=== PATIENT | female | born 2000 | race Caucasian/White ===

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

== ENCOUNTER 2025-01-20 16:19 | Emergency (ER) | payer BC, SELFPAY ==
[2025-01-20 16:22] VITALS: BP 114/72; PULSE 60; RESP 14; TEMP 36.9; O2SAT 97; BMI 22.6
--- NOTE | 2025-01-20 16:39 | US_ITS ---
PROCEDURE INFORMATION: Exam: US , Transvaginal Exam date and time: 01/20/2025 5:10 PM Age: 24 years old Clinical indication: complicated by abdominal or pelvic pain; Lower; First trimester (<14 weeks 0 days); Gestational age or lmp: 7w1d; ; Additional info: 8 wks preg TECHNIQUE: Imaging protocol: Real-time transvaginal obstetrical ultrasound of the maternal pelvis with image documentation. Transvaginal imaging was used for better evaluation of the fetus, adnexa, and/or cervix. COMPARISON: No relevant prior studies available. FINDINGS: Gestation: Yolk sac measures 0.54 cm. heart rate: heart rate 138 bpm. BIOMETRY: [place] rump length (CRL): [place]-rump length measures 10.01 mm. MATERNAL: Right ovary/adnexa: Right ovary measures 4 x 1.8 x 2.8 cm. There is normal vascular flow. Left ovary/adnexa: Left ovary measures 4 x 2 x 2.4 cm. There is normal vascular flow. IMPRESSION: Single live intrauterine of estimated gestational age 7 weeks 1 day.
--- NOTE | 2025-01-20 16:41 | HMH.EDGENADL ---
Discharge Plan Disposition Patient Disposition: Home, Self-Care Condition: Good Prescriptions Prescriptions: New diphenhydramine HCl [Unisom SleepGels] 50 mg capsule 50 mg PO HS 10 Days Qty: 10 0RF promethazine 12.5 mg tablet 12.5 mg PO TID 3 Days Qty: 9 0RF pyridoxine (vitamin B6) [Vitamin B-6] 25 mg tablet 25 mg PO BID Qty: 60 0RF Referrals Follow up/Referrals: Martín Ng MD [Primary Care Provider] - See instructions Activity Restrictions/Add. Instructions Additional Instructions/Restrictions: Monitor temperature. Seek treatment if fever develops. Follow-up immediately if new or worse symptoms worsen or no noticeable improvement over 48 hours. Increase fluids such as water, Gatorade, Powerade, juice or Pedialyte with limited formula/dietary in children No food is okay as long as you are drinking. Once ready to eat start bland such as bananas, rice, applesauce, toast. Follow-up immediately for new or worsening symptoms or no noticeable improvement over the next 48 hours. Clinical Impressions Clinical Impression: Hyperemesis Instructions Patient Instructions: DI for Acute Abdominal Pain Print Language Print Language: Slovak Discharge ED Provider: David Dunne General Adult HPI <Ayanna Martinez ([facility]), HEALTH AND FITNESS INSTRUCTOR - Last Filed: 01/20/25 19:25> General Chief complaint: Abdominal Pain Stated complaint: 5 wks preg, vomit,diarrhea abd pain Time Seen by Provider: 01/20/25 16:39 Mode of Arrival: Wheelchair Source of Information: Significant Other Description of Symptoms (Recalled from ER Triage Doc. by RN): Patient presents to triage via a wheelchair with her significant other. States she is having abdominal. Endorses N/V. States she has been doing so for, A few days. States she is two months . States she saw her OBGYN, but doesn't remember the date, and states she told them about the symptoms. States they attributed the symptoms to her . Her significant other states, She was sick for two days, better yesterday, and then sick again today. Denies fevers. Endorses diarrhea. G3, P1, A1 History of Present Illness HPI narrative: 24-year-old female presents for complaints of generalized abdominal pain, nausea and vomiting. Patient states she is 8 weeks . patient states she has had the symptoms since she found out she was but over the last few days the symptoms have increased. Patient states she did tell her LEVEL VIAL INSPECTOR of her symptoms and per patient was told it was because she was . Patient states she felt better yesterday but this morning she is unable to keep anything down. Related Data Previous Rx's ?Medication ?Instructions ?Recorded diphenhydramine HCl 50 mg capsule 50 mg PO HS 10 days #10 caps 01/20/25 (Unisom SleepGels) promethazine 12.5 mg tablet 12.5 mg PO TID 3 days #9 tabs 01/20/25 pyridoxine (vitamin B6) 25 mg 25 mg PO BID #60 tabs 01/20/25 tablet (Vitamin B-6) Allergies Allergy/AdvReac Type Severity Reaction Status Date / Time No Known Allergies Allergy Verified 04/28/20 13:31 PFS <Ayanna Martinez ([facility]), HEALTH AND FITNESS INSTRUCTOR - Last Filed: 01/20/25 19:25> PFS Disclaimer: The information contained in this section may have been updated after the patient was seen, as this information can be updated by other users. Social History (Updated 01/20/25 @ 19:25 by Ayanna Martinez ([facility]), HEALTH AND FITNESS INSTRUCTOR) Smoking Status: Never smoker alcohol intake: never current occupational status: other Travel in the last 8 weeks: None Have you lived/traveled outside [place] in past 30 days?: No Contact w/someone who lives/traveled outside US past 30 days?: No Exposure to someone with infectious disease in past 14 days?: No Do you have a fever (greater than 100.4 F or 38 C)?: No Have you tested positive for COVID-19: No Exposed to someone with COVID-19 in past 14 days?: No Do you have a sore throat?: No Do you have a cough?: No Do you have any weakness?: Yes Do you have any diarrhea?: Yes Are you experiencing any unusual bleeding?: No Do you have any muscle aches/pain?: No Do you have any abdominal pain?: Yes Are you experiencing loss of taste or smell?: No <Ayanna Martinez ([facility]), HEALTH AND FITNESS INSTRUCTOR - Last Filed: 01/20/25 19:25> ROS Obtained: Yes Systems reviewed as appropriate & no additional complaints except as documented Constitutional Constitutional: Reports system reviewed and no additional complaints, except as documented and Reports as per HPI Gastrointestinal Gastrointestingal: Reports system reviewed and no additional complaints, except as documented, as per HPI, abdominal pain, nausea and vomiting Physical Exam <Ayanna Martinez ([facility]), HEALTH AND FITNESS INSTRUCTOR - Last Filed: 01/20/25 19:25> General General appearance: alert and in no apparent distress Head Head exam: atraumatic Eye Eye exam: Present normal appearance ENT ENT exam: Present normal exam Respiratory Respiratory exam: Present normal lung sounds bilaterally Cardiovascular Cardiovascular exam: Present regular rate and normal rhythm Abdominal Exam Abdominal exam: Present soft, tenderness and normal bowel sounds Neurological Exam Neurological exam: Present alert and oriented X3 Skin Skin exam: Present warm and intact Medical Decision Making <Ayanna Martinez ([facility]), HEALTH AND FITNESS INSTRUCTOR - Last Filed: 01/20/25 19:25> Medical Records Medical records reviewed: Yes I reviewed the patient's medical records. Screening: Per USPSTF and CDC recommendations, given the prevalence of disease in our region, it is our hospital?s policy to screen for HIV and viral Hepatitis for all patients aged 18 and over and those with ongoing risk factors. Samuel Inquiry Pt receiving controlled substance: No Vital Signs: 01/20/25 16:22 01/20/25 17:01 01/20/25 18:00 Temperature 98.5 F Temperature Source Oral Pulse Rate 55 L 85 Pulse Rate [Radial] 60 Respiratory Rate 14 Blood Pressure 118/64 136/109 H Blood Pressure [R Arm] 114/72 Blood Pressure Mean [R Arm] 86 Blood Pressure Source [R Arm] Automatic Cuff 02 Sat by Pulse Oximetry 97 100 96 Oxygen Delivery Method Room Air Room Air 01/20/25 18:30 01/20/25 19:57 Temperature 97.9 F Temperature Source Oral Pulse Rate 72 72 Pulse Rate [Radial] Respiratory Rate 14 Blood Pressure 132/64 128/72 Blood Pressure [R Arm] Blood Pressure Mean [R Arm] Blood Pressure Source [R Arm] 02 Sat by Pulse Oximetry 99 Oxygen Delivery Method Room Air Room Air Lab Data Lab results reviewed: Yes I reviewed the patient's lab results. Lab Results 01/20/25 16:58: WBC 19.6 H, RBC 4.42, Hgb 13.7, Hct 39.8, MCV 90.0, MCH 31.0, MCHC 34.4, RDW 12.0, Plt Count 322, MPV 9.8, Neut % (Auto) 92.6 H, Lymph % (Auto) 3.5 L, [place] % (Auto) 2.9, Eos % (Auto) 0.1, Baso % (Auto) 0.3, Neut # (Auto) 18.2 H, Lymph # (Auto) 0.7, [place] # (Auto) 0.6, Eos # (Auto) 0.0, Baso # (Auto) 0.1, Total Counted 100, Neutrophils % (Manual) 92 H, Lymphocytes % (Manual) 3 L, Monocytes % (Manual) 5, Platelet Estimate Normal, RBC Morphology Normal, Sodium 137, Potassium 3.2 L, Chloride 101, Carbon Dioxide 29, Anion Gap 10.2, BUN 16, Creatinine 0.70, Estimated Creat Clear 107, Estimated GFR 104, Est GFR ( Amer) 125, Glucose 127 H, Calcium 9.1, Total Bilirubin 0.2, AST 32, ALT 21, Alkaline Phosphatase 69, Total Protein 7.5, Albumin 4.7, Globulin 2.8, Albumin/Globulin Ratio 1.7, Lipase 35, HCG, Quant [id number] H 01/20/25 17:40: SARS-CoV-2 (PCR) Not detected, Influenza A Untype (PCR) Not detected, Influenza Type B (PCR) Not detected 01/20/25 18:40: Urine Color Yellow, Urine Appearance Slightly cloudy, Urine pH 8.0, Ur Specific [place] 1.020, Urine Protein Negative, Urine Glucose (UA) Negative, Urine Ketones 2+, Urine Blood Negative, Urine Nitrate Negative, Urine Bilirubin Negative, Urine Urobilinogen 0.2, Ur Leukocyte Esterase Negative 01/20/25 16:58 01/20/25 16:58 Orders (Tests/Meds): ED MEDICATIONS Discontinued Medications Generic Name Dose Route Start Last Admin Trade Name Freq PRN Reason Stop Dose Admin Sodium Chloride 1,000 mls @ 999 mls/hr 01/20/25 16:39 01/20/25 16:51 Sod Chlor 0.9% 1000ml Bag IV 01/20/25 17:39 999 mls/hr .Q1H1M ONE Administration Ondansetron HCl 4 mg 01/20/25 16:39 01/20/25 16:51 Ondansetron 4mg/2ml Vial IV 01/20/25 16:40 4 mg ONCE ONE Administration Potassium Chloride 20 meq 01/20/25 17:36 01/20/25 18:12 Potassium Chloride 20meq Tab PO 01/20/25 17:37 20 meq ONCE ONE Administration Promethazine HCl 12.5 mg 01/20/25 17:52 01/20/25 17:59 Promethazine Hcl 25mg/Ml 1ml Vial IV 01/20/25 17:53 12.5 mg ONCE ONE Administration Sodium Chloride 25 ml 01/20/25 17:52 01/20/25 17:59 Sodium Chloride 0.9% 25ml Bag IV 01/20/25 17:53 25 ml ONCE ONE Administration ORDERS Category Date Time Status Beta HCG, Quant [HCG,Quantitative] Stat Lab 01/20/25 16:58 Completed CBC w/Auto Diff [Complete Blood Count Auto Diff] Stat Lab 01/20/25 16:58 Completed CMP [Comprehensive Metabolic Panel] Stat Lab 01/20/25 16:58 Completed Lipase Stat Lab 01/20/25 16:58 Completed Rapid PCR Covid and Flu A/B Stat Lab 01/20/25 17:40 Completed Urinalysis-Acute [Urinalysis and Microscopic] Stat Lab 01/20/25 18:40 Results US OB transvaginal Stat Ultrasound 01/20/25 16:39 Completed Medical Decision Narrative: In summary patient is a 24-year-old female who presents to the emergency department for evaluation of abdominal pain, nausea and vomiting. Patient is upon arrival, patient is hemodynamically stable and afebrile. Generalized tenderness in abdomen. Differential diagnosis includes gastritis, influenza, UTI, hyperemesis from . Initial workup will be conducted with labs, ultrasound shows a 7-week fetus in the uterus. Initial inventions include 1000 mL of normal saline, 20 mg of p.o. potassium, 12.5 of IV Phenergan. Initial workup reviewed by in labs show potassium of 3.2 given 20 mg of p.o. potassium, urinalysis was negative, and was given a p.o. challenge and was able to keep liquids down and patient states she feels better. Upon repeat evaluation patient states she is still slightly nauseous but much improved. Given this patient is appropriate for discharge at this time will discharge home with prescription for vitamin B6 Unasyn and Phenergan and close follow-up with LEVEL VIAL INSPECTOR. Encourage p.o. intake <David Dunne MD - Last Filed: 01/20/25 20:05> Vital Signs: 01/20/25 16:22 01/20/25 17:01 01/20/25 18:00 Temperature 98.5 F Temperature Source Oral Pulse Rate 55 L 85 Pulse Rate [Radial] 60 Respiratory Rate 14 Blood Pressure 118/64 136/109 H Blood Pressure [R Arm] 114/72 Blood Pressure Mean [R Arm] 86 Blood Pressure Source [R Arm] Automatic Cuff 02 Sat by Pulse Oximetry 97 100 96 Oxygen Delivery Method Room Air Room Air 01/20/25 18:30 01/20/25 19:57 Temperature 97.9 F Temperature Source Oral Pulse Rate 72 72 Pulse Rate [Radial] Respiratory Rate 14 Blood Pressure 132/64 128/72 Blood Pressure [R Arm] Blood Pressure Mean [R Arm] Blood Pressure Source [R Arm] 02 Sat by Pulse Oximetry 99 Oxygen Delivery Method Room Air Room Air Lab Data Lab Results 01/20/25 16:58: WBC 19.6 H, RBC 4.42, Hgb 13.7, Hct 39.8, MCV 90.0, MCH 31.0, MCHC 34.4, RDW 12.0, Plt Count 322, MPV 9.8, Neut % (Auto) 92.6 H, Lymph % (Auto) 3.5 L, [place] % (Auto) 2.9, Eos % (Auto) 0.1, Baso % (Auto) 0.3, Neut # (Auto) 18.2 H, Lymph # (Auto) 0.7, [place] # (Auto) 0.6, Eos # (Auto) 0.0, Baso # (Auto) 0.1, Total Counted 100, Neutrophils % (Manual) 92 H, Lymphocytes % (Manual) 3 L, Monocytes % (Manual) 5, Platelet Estimate Normal, RBC Morphology Normal, Sodium 137, Potassium 3.2 L, Chloride 101, Carbon Dioxide 29, Anion Gap 10.2, BUN 16, Creatinine 0.70, Estimated Creat Clear 107, Estimated GFR 104, Est GFR ( Amer) 125, Glucose 127 H, Calcium 9.1, Total Bilirubin 0.2, AST 32, ALT 21, Alkaline Phosphatase 69, Total Protein 7.5, Albumin 4.7, Globulin 2.8, Albumin/Globulin Ratio 1.7, Lipase 35, HCG, Quant [id number] H 01/20/25 17:40: SARS-CoV-2 (PCR) Not detected, Influenza A Untype (PCR) Not detected, Influenza Type B (PCR) Not detected 01/20/25 18:40: Urine Color Yellow, Urine Appearance Slightly cloudy, Urine pH 8.0, Ur Specific [place] 1.020, Urine Protein Negative, Urine Glucose (UA) Negative, Urine Ketones 2+, Urine Blood Negative, Urine Nitrate Negative, Urine Bilirubin Negative, Urine Urobilinogen 0.2, Ur Leukocyte Esterase Negative Orders (Tests/Meds): ED MEDICATIONS Discontinued Medications Generic Name Dose Route Start Last Admin Trade Name Freq PRN Reason Stop Dose Admin Sodium Chloride 1,000 mls @ 999 mls/hr 01/20/25 16:39 01/20/25 16:51 Sod Chlor 0.9% 1000ml Bag IV 01/20/25 17:39 999 mls/hr .Q1H1M ONE Administration Ondansetron HCl 4 mg 01/20/25 16:39 01/20/25 16:51 Ondansetron 4mg/2ml Vial IV 01/20/25 16:40 4 mg ONCE ONE Administration Potassium Chloride 20 meq 01/20/25 17:36 01/20/25 18:12 Potassium Chloride 20meq Tab PO 01/20/25 17:37 20 meq ONCE ONE Administration Promethazine HCl 12.5 mg 01/20/25 17:52 01/20/25 17:59 Promethazine Hcl 25mg/Ml 1ml Vial IV 01/20/25 17:53 12.5 mg ONCE ONE Administration Sodium Chloride 25 ml 01/20/25 17:52 01/20/25 17:59 Sodium Chloride 0.9% 25ml Bag IV 01/20/25 17:53 25 ml ONCE ONE Administration ORDERS Category Date Time Status Beta HCG, Quant [HCG,Quantitative] Stat Lab 01/20/25 16:58 Completed CBC w/Auto Diff [Complete Blood Count Auto Diff] Stat Lab 01/20/25 16:58 Completed CMP [Comprehensive Metabolic Panel] Stat Lab 01/20/25 16:58 Completed Lipase Stat Lab 01/20/25 16:58 Completed Rapid PCR Covid and Flu A/B Stat Lab 01/20/25 17:40 Completed Urinalysis-Acute [Urinalysis and Microscopic] Stat Lab 01/20/25 18:40 Results US OB transvaginal Stat Ultrasound 01/20/25 16:39 Completed Medical Decision Narrative: In summary patient is a 24-year-old female who presents to the emergency department for evaluation of abdominal pain, nausea and vomiting. Patient is upon arrival, patient is hemodynamically stable and afebrile. Generalized tenderness in abdomen. Differential diagnosis includes gastritis, influenza, UTI, hyperemesis from . Initial workup will be conducted with labs, ultrasound shows a 7-week fetus in the uterus. Initial inventions include 1000 mL of normal saline, 20 mg of p.o. potassium, 12.5 of IV Phenergan. Initial workup reviewed by me labs show potassium of 3.2 given 20 mg of p.o. potassium, urinalysis was negative, and was given a p.o. challenge and was able to keep liquids down and patient states she feels better. Upon repeat evaluation patient states she is still slightly nauseous but much improved. Given this patient is appropriate for discharge at this time will discharge home with prescription for vitamin B6 Unasyn and Phenergan and close follow-up with LEVEL VIAL INSPECTOR. Encourage p.o. intake KAJAL attestation I was consulted by the KAJAL, and we discussed the complexity of problems being addressed. I approved the treatment and management plan for this patient's care in the emergency department, thus performing a substantial portion of the medical decision making. 24-year-old female, G3, P2 presenting with diffuse abdominal pain, nausea, vomiting and positive home test. Differential diagnosis included ectopic and transvaginal ultrasound performed, independently interpreted by me, revealing intrauterine with a normal heart rate, estimated at 7 weeks and 1 day by [place]-rump length. After treatment with antiemetics, the patient was able to tolerate oral intake and had improvement in symptoms. Was also a daily marijuana smoker and counseled to discontinue this. Discharged with follow-up with LEVEL VIAL INSPECTOR. David Dunne MD Critical Care <Ayanna Martinez ([facility]), HEALTH AND FITNESS INSTRUCTOR - Last Filed: 01/20/25 19:25> Critical Care Time Critical Care Time: No
--- NOTE | 2025-01-20 16:41 | PC.NURSE ---
RADIOLOGY NOTIFIED OF US
[2025-01-20] MEDS: ONDANSETRON 4MG/2ML VIAL 4 MG IV (16:51)
[2025-01-20] MEDS: 0.9 % SODIUM CHLORIDE 1000ML 1,000 ML 999 ML IV (16:51)
[2025-01-20 17:01] VITALS: BP 118/64; PULSE 55; O2SAT 100
--- NOTE | 2025-01-20 17:03 | PC.NURSE ---
1645hrs IV established 18ga R hand. 1650hrs collected lab work and sent to lab. 1651hrs Administered 1L of NS at tko rate. 1653hrs administered 4mg of Zofran IV. 1700hrs sent blood work that I could get collected to the lab.
[2025-01-20 17:12] LABS: Basophils # 0.1 K/mm3 (0-0.2); Basophils % 0.3 % (0.1-2.0); Eosinophils % 0.1 % (0.1-12.0); Hematocrit 39.8 % (37.0-47.0); Hemoglobin 13.7 g/dL (12.2-16.2); Lymphocytes # 0.7 K/mm3 (0.7-4.5); Lymphocytes % 3.5 % (10-50); Mean Corpuscular HGB Conc 34.4 g/dL (31.8-35.4); Mean Platelet Volume 9.8 fl (7.4-10.4); Monocytes # 0.6 K/mm3 (0.1-1.0); Monocytes % 2.9 % (1.7-9.3); Neutrophils # 18.2 K/mm3 (1.8-7.8); Neutrophils % 92.6 % (37.0-80.0); Platelet Count 322 K/mm3 (142-424); Red Blood Count 4.42 M/mm3 (4.20-5.40); White Blood Count 19.6 K/mm3 (4.8-10.8)
[2025-01-20 17:15] LABS: MANUAL DIFFERENTIAL MANUAL DIFFERENTIAL (MANUAL DIFF)
--- NOTE | 2025-01-20 17:17 | PC.NURSE ---
pt to u/s via wheelchair
[2025-01-20 17:28] LABS: Albumin Level 4.7 g/dl (3.5-5.0); Chloride 101 mmol/L (98-107); Potassium 3.2 mmoL/L (3.5-5.1); Sodium 137 mmol/L (136-145)
[2025-01-20 17:31] LABS: Alanine Aminotransferase 21 U/L (12-78); Albumin/Globulin Ratio 1.7 (1.1-1.8); Alkaline Phosphatase 69 U/L (38-126); Anion Gap 10.2 mEq/L (5-15); Aspartate Amino Transferase 32 U/L (14-36); Bilirubin,Total 0.2 mg/dl (0.2-1.3); Blood Urea Nitrogen 16 mg/dl (7-17); Calcium 9.1 mg/dl (8.4-10.2); Carbon Dioxide 29 mmol/L (22.0-30.0); Creatinine Clearance Estimated 107 mL/min (50-200); Estimated Glomerular Filt Rate 104 ml/min (>60); GFR (African American) 125 ML/MIN (>60); Globulin 2.8 g/dL (1.3-3.2); Glucose 127 mg/dl (74-100); Lipase 35 U/L (23-300); Total Protein,Serum 7.5 g/dl (6.3-8.2)
--- NOTE | 2025-01-20 17:37 | PC.NURSE ---
pt is back from [facility]
[2025-01-20 17:43] LABS: Coronavirus 19, PCR Not Detected (NotDetected); Influenza A, PCR Not Detected (NotDetected); Influenza B, PCR Not Detected (NotDetected)
[2025-01-20] MEDS: SODIUM CHLORIDE 0.9% 25ML BAG 25 ML IV (17:59)
[2025-01-20] MEDS: PROMETHAZINE HCL 25MG/ML 1ML VIAL 12.5 MG IV (17:59)
[2025-01-20 18:00] VITALS: BP 136/109; PULSE 85; O2SAT 96
[2025-01-20] MEDS: POTASSIUM CHLORIDE 20MEQ TAB 20 MEQ PO (18:12)
[2025-01-20 18:30] VITALS: BP 132/64; PULSE 72; O2SAT 99
[2025-01-20 18:36] LABS: Lymphocytes % 3 % (10-50); Monocytes % 5 % (2-9); Neutrophils % 92 % (42-76); Platelet Estimate Normal; RBC Morphology Normal; Total Cells Counted 100
[2025-01-20 18:39] LABS: HCG,Quantitative 75773 mIU/ml (0-5.42)
[2025-01-20 18:45] LABS: Microscopic, Urine URINE MICROSCOPIC (MICROSCOPIC)
[2025-01-20 18:49] LABS: Bilirubin,Urine Negative (Negative); Blood, Urine Negative (Negative); Color,Urine YELLOW (Yellow); Glucose,Urine (UA) Negative (Negative); Ketones,Urine 2+ (Negative); Leukocyte Esterase,Urine Negative (Negative); Nitrate,Urine Negative (Negative); Protein,Urine Negative (Negative); Urobilinogen,Urine 0.2 EU/dl (0.2)
[2025-01-20 18:52] LABS: Appearance,Urine Slightly Cloudy (Clear)
[2025-01-20 19:57] VITALS: BP 128/72; PULSE 72; RESP 14; TEMP 36.6; O2SAT 98
[2025-01-20 21:29] LABS: Amorphous Sediment,Urine 2+ /lpf; Bacteria,Urine 2+ /lpf; RBC,Urine Occasional #/hpf (0-3); WBC,Urine Occasional #/hpf (0-3)
== END 2025-01-20 20:04 | disposition home or self-care (01) ==
PROVIDERS: Nurse Practitioner Family; Emergency Provider Student in an Organized Health Care Education/Training Program; PCP Family Medicine
DX: O21.8 Other vomiting complicating pregnancy (principal); R10.84 Generalized abdominal pain; Z3A.01 Less than 8 weeks gestation of pregnancy
CPT/HCPCS: 76817; 80053; 81001; 83690; 84702; 85007; 85025; 85027; 87086; 87636; 96361; 96374; 96375; 99283; J2405; J2550; J7030

== ENCOUNTER 2025-03-01 18:05 | Emergency (ER) | payer BC, SELFPAY ==
[2025-03-01 18:10] VITALS: BP 124/74; PULSE 68; RESP 18; TEMP 36.6; O2SAT 99; BMI 20.4
--- NOTE | 2025-03-01 18:17 | PC.NURSE ---
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 Pt states she was to go to appt today but was unable d/t nausea. pt states she is prescribed Zofran but states it doesn't work. pt reports pain t/o abdomen. pt state at first OB appt ultrasound was healthy.
[2025-03-01 18:37] LABS: Basophils % 0.1 % (0.1-2.0); Hematocrit 39.9 % (37.0-47.0); Hemoglobin 13.6 g/dL (12.2-16.2); Lymphocytes # 0.4 K/mm3 (0.7-4.5); Lymphocytes % 1.7 % (10-50); Mean Corpuscular HGB Conc 34.1 g/dL (31.8-35.4); Mean Corpuscular Hemoglobin 31.5 pg (27.0-31.2); Mean Corpuscular Volume 92.4 fl (81-99); Mean Platelet Volume 9.4 fl (7.4-10.4); Monocytes # 0.2 K/mm3 (0.1-1.0); Monocytes % 0.8 % (1.7-9.3); Neutrophils # 22.3 K/mm3 (1.8-7.8); Nucleated Red Blood Cells # 0 10^3/uL; Nucleated Red Blood Cells % 0 %; Platelet Count 332 K/mm3 (142-424); Red Blood Count 4.32 M/mm3 (4.20-5.40); Red Cell Distribution Width 12.5 % (11.5-17.5); White Blood Count 22.9 K/mm3 (4.8-10.8)
[2025-03-01 18:39] LABS: Albumin Level 4.6 g/dl (3.5-5.0); Chloride 102 mmol/L (98-107); MANUAL DIFFERENTIAL MANUAL DIFFERENTIAL (MANUAL DIFF); Sodium 137 mmol/L (136-145)
[2025-03-01 18:41] LABS: Blood Urea Nitrogen 11 mg/dl (7-17); Creatinine Clearance Estimated 135 mL/min (50-200); Estimated Glomerular Filt Rate 153 ml/min (>60); GFR (African American) 185 ML/MIN (>60)
[2025-03-01 18:42] LABS: Alanine Aminotransferase 20 U/L (12-78); Albumin/Globulin Ratio 1.4 (1.1-1.8); Alkaline Phosphatase 57 U/L (38-126); Aspartate Amino Transferase 34 U/L (14-36); Bilirubin,Total 0.5 mg/dl (0.2-1.3); Calcium 9.2 mg/dl (8.4-10.2); Carbon Dioxide 22 mmol/L (22.0-30.0); Globulin 3.4 g/dL (1.3-3.2); Glucose 143 mg/dl (74-100)
--- NOTE | 2025-03-01 18:46 | ED_ITS ---
<Statement entered by Susannah Avery DO - 03/02/25 00:52> I was consulted by the KAJAL, and we discussed the complexity of the problems being addressed. I approved the treatment and management plan for this patient's care in the emergency department, thus performing a substantive portion of the medical decision making. I performed ultrasound, baby looks good with good amount of fluid, good heart tones. I advised the patient that I recommend staying, as if she has appendicitis or other surgical intra-abdominal pathology this could be life-threatening to her if she goes home. She adamantly refused. Limited OB ultrasound Indication: Abdominal pain in the setting of Identified structures: Uterus Findings: Uterus: Definitive IUP FHR: 160 Impression: -IUP: Present - heart rate: 160 Images were saved to permanent archive The study was technically adequate CPT Transabdominal: 87867-33 This study was performed by me, and I personally interpreted all images/videos. Based on my clinical judgement, these images were adequate and did not necessitate further imaging. Susannah Avery DO Discharge Plan Disposition Patient Disposition: Left Against Medical Advice Condition: Serious Clinical Impressions Clinical Impression: Abdominal pain, right lower quadrant Discharge ED Provider: Susannah Avery General Adult HPI General Chief complaint: Nausea/Vomiting/Diarrhea Stated complaint: vomiting,nausea Time Seen by Provider: 03/01/25 18:46 Mode of Arrival: Ambulatory Source of Information: Patient and Significant Other Description of Symptoms (Recalled from ER Triage Doc. by RN): Pt states she is 13 weeks and is having abdominal pain that is accompanied with vomiting and diarrhea. Pt states the pain is in her lower abdomen and rates it as a 6/10 History of Present Illness HPI narrative: Patient presents for evaluation of right lower quadrant abdominal pain. Patient states that she began having right lower quadrant pain in the middle of the night. She has had vomiting and nausea as well. She was subjectively reports a fever but denies chest pain shortness of breath hemoptysis hematochezia melena diarrhea dysuria. Related Data Previous Rx's ?Medication ?Instructions ?Recorded diphenhydramine HCl 50 mg capsule 50 mg PO HS 10 days #10 caps 01/20/25 (Unisom SleepGels) promethazine 12.5 mg tablet 12.5 mg PO TID 3 days #9 tabs 01/20/25 pyridoxine (vitamin B6) 25 mg 25 mg PO BID #60 tabs 01/20/25 tablet (Vitamin B-6) Allergies Allergy/AdvReac Type Severity Reaction Status Date / Time No Known Allergies Allergy Verified 04/28/20 13:31 [facility] Disclaimer: The information contained in this section may have been updated after the patient was seen, as this information can be updated by other users. Social History (Updated 01/20/25 @ 19:25 by Ayanna Martinez ([facility]), SQL SSRS SSIS DEVELOPER) Smoking Status: Current every day smoker alcohol intake: never current occupational status: other Travel in the last 8 weeks: None Have you lived/traveled outside US in past 30 days?: No Contact w/someone who lives/traveled outside US past 30 days?: No Exposure to someone with infectious disease in past 14 days?: No Do you have a fever (greater than 100.4 F or 38 C)?: No Have you tested positive for COVID-19: No Exposed to someone with COVID-19 in past 14 days?: No Do you have a sore throat?: No Do you have a cough?: No Do you have any weakness?: No Do you have any diarrhea?: No Are you experiencing any unusual bleeding?: No Do you have any muscle aches/pain?: No Do you have any abdominal pain?: No Are you experiencing loss of taste or smell?: No ROS Obtained: Yes Systems reviewed as appropriate & no additional complaints except as documented Physical Exam General General appearance: alert and in no apparent distress Neck Neck exam: Present lymphadenopathy Respiratory Respiratory exam: Present normal lung sounds bilaterally Cardiovascular Cardiovascular exam: Present regular rate Neurological Exam Neurological exam: Present alert and oriented X3 Medical Decision Making Medical Records Medical records reviewed: Yes I reviewed the patient's medical records. Screening: Per USPSTF and CDC recommendations, given the prevalence of disease in our region, it is our hospital?s policy to screen for HIV and viral Hepatitis for all patients aged 18 and over and those with ongoing risk factors. Samuel Inquiry Pt receiving controlled substance: No Vital Signs: 03/01/25 18:10 Temperature 98 F Temperature Source Oral Pulse Rate [Right] 68 Respiratory Rate 18 Blood Pressure [Right Arm] 124/74 Blood Pressure Mean [Right Arm] 90 Blood Pressure Source [Right Arm] Automatic Cuff Blood Pressure Position [Right Arm] Sitting 02 Sat by Pulse Oximetry 99 Lab Data Lab results reviewed: Yes I reviewed the patient's lab results. Lab Results 03/01/25 18:25: WBC 22.9 H*, RBC 4.32, Hgb 13.6, Hct 39.9, MCV 92.4, MCH 31.5 H, MCHC 34.1, RDW 12.5, Plt Count 332, MPV 9.4, Neut % (Auto) 97.0 H, Lymph % (Auto) 1.7 L, [place] % (Auto) 0.8 L, Eos % (Auto) 0.0 L, Baso % (Auto) 0.1, Neut # (Auto) 22.3 H, Lymph # (Auto) 0.4 L, [place] # (Auto) 0.2, Eos # (Auto) 0.0, Baso # (Auto) 0.0, Total Counted 100, Neutrophils % (Manual) 99 H, Monocytes % (Manual) 1 L, Platelet Estimate Normal, RBC Morphology Normal, Sodium 137, Potassium 4.0, Chloride 102, Carbon Dioxide 22, Anion Gap 17.0 H, BUN 11, Creatinine 0.50 L, Estimated Creat Clear 135, Estimated GFR 153, Est GFR ( Amer) 185, G lucose 143 H, Calcium 9.2, Total Bilirubin 0.5, AST 34, ALT 20, Alkaline Phosphatase 57, Total Protein 8.0, Albumin 4.6, Globulin 3.4 H, Albumin/Globulin Ratio 1.4, Procalcitonin 0.040 03/01/25 19:10: Urine Color Yellow, Urine Appearance Slightly cloudy, Urine pH 6.5, Ur Specific [place] >= 1.030, Urine Protein 1+ A, Urine Glucose (UA) Negative, Urine Ketones 2+, Urine Blood Negative, Urine Nitrate Negative, Urine Bilirubin Negative, Urine Urobilinogen 0.2, Ur Leukocyte Esterase Negative, Urine RBC 3-5, Urine WBC 3-5, Ur Squamous Epith Cells 10-20, Urine Bacteria Trace, Urine Mucus 3+ 03/01/25 18:25 03/01/25 18:25 Orders (Tests/Meds): ED MEDICATIONS Generic Name Dose Route Start Last Admin Trade Name Freq PRN Reason Stop Dose Admin Sodium Chloride 1,430 mls @ 715 mls/hr 03/01/25 21:13 Sod Chlor 0.9% 1000ml Bag 30 ml/kg infuse over 2 hr (1430 ml) 03/01/25 23:12 IV .Q2H ONE Discontinued Medications Generic Name Dose Route Start Last Admin Trade Name Romel PRN Reason Stop Dose Admin Acetaminophen 1,000 mg 03/01/25 18:54 03/01/25 19:07 Acetaminophen 1,000mg/100ml Vial IV 03/01/25 18:55 1,000 mg ONCE ONE Administration Sodium Chloride 1,000 mls @ 999 mls/hr 03/01/25 18:54 03/01/25 19:07 Sod Chlor 0.9% 1000ml Bag IV 03/01/25 19:54 999 mls/hr .Q1H1M ONE Administration Metoclopramide HCl 5 mg 03/01/25 18:54 03/01/25 19:07 Metoclopramide Hcl 10mg/2ml Vial IVP 03/01/25 18:55 5 mg ONCE ONE Administration ORDERS Category Date Time Status Complete Blood Count Auto Diff Stat Lab 03/01/25 18:25 Completed Comprehensive Metabolic Panel Stat Lab 03/01/25 18:25 Completed Lactic Acid Stat Lab 03/01/25 18:54 Ordered Procalcitonin Stat Lab 03/01/25 18:25 Completed UA [Urinalysis and Microscopic] Stat Lab 03/01/25 19:10 Completed Medical Decision Narrative: In summary patient is a 24-year-old female who presents to the emergency department for evaluation of lower quadrant abdominal pain. Patient is hemodynamic stable with a blood pressure 12/08/1972 heart rate 68 normal sinus rhythm on bedside monitor breathing 18 times a minute satting at 99% on room air upon arrival, afebrile currently at 98 . Physical exam is remarkable for focal tenderness in the right lower quadrant with no rebound or guarding no rigidity. Bowel sounds normal active.. Differential diagnosis includes urinary tract infection versus appendicitis versus colitis versus constipation etc. Initial workup will be conducted with hematologic labs and urinalysis.. Initial interventions include crystalloid bolus and Tylenol. Initial workup reviewed by me and patient has a white count of 22,900 normal H&H the neutrophil count of 22.3 and anion gap of 17 and creatinine 0.5 and hCG of 75,773 on 01/20/2025 a urinalysis that shows 1+ protein 2+ ketones and microscopic exam shows 3-5 red cells 3-5 white cells 10-20 epithelial cells trace bacteria. POCUS shows viable intrauterine with visible fetus given this I had a direct discussion with [facility] regarding patient JARVIS presentation and patient management as we do not have MRI or ultrasound however they are on divert and recommended other facilities. I ordered a sepsis bolus broad- spectrum antibiotics and blood cultures. At that point we contacted Dr. Chen who was agreeable for admission IV antibiotics and MRI in the a.m. Upon repeat evaluation we had a shared decision-making discussion with the patient regarding her JARVIS presentation and recommendations and despite the risks of increasing illness bowel perforation even patient has elected to leave AGAINST MEDICAL ADVICE and declined any further care.. Patient was instructed that should she have any continued new or worsening signs or symptoms to return to the ER as needed. Critical Care Critical Care Time Critical Care Time: Yes Attestation: On 03/01/25, the high probability of a clinically significant, sudden or life threatening deterioration of the following system(s) required my full and direct attention, intervention and personal management. The time I documented below is in addition to time spent performing reported procedures but includes the following listed in this critical care notation. Total Time Total Critical Care Time: 35
[2025-03-01] MEDS: METOCLOPRAMIDE HCL 10MG/2ML VIAL 5 MG IVP (19:07)
[2025-03-01] MEDS: ACETAMINOPHEN 1,000MG/100ML VIAL 1000 MG IV (19:07)
[2025-03-01] MEDS: 0.9 % SODIUM CHLORIDE 1000ML 1,000 ML 999 ML IV (19:07)
[2025-03-01 19:17] LABS: Microscopic, Urine URINE MICROSCOPIC (MICROSCOPIC)
[2025-03-01 19:19] LABS: Bilirubin,Urine Negative (Negative); Blood, Urine Negative (Negative); Color,Urine YELLOW (Yellow); Glucose,Urine (UA) Negative (Negative); Ketones,Urine 2+ (Negative); Leukocyte Esterase,Urine Negative (Negative); Nitrate,Urine Negative (Negative); PH,Urine 6.5 (5.0-8.5); Protein,Urine 1+ (Negative); Specific Gravity, Urine >= 1.030 (1.005-1.030); Urobilinogen,Urine 0.2 EU/dl (0.2)
[2025-03-01 19:32] LABS: Monocytes % 1 % (2-9); Neutrophils % 99 % (42-76); Platelet Estimate Normal; RBC Morphology Normal; Total Cells Counted 100
[2025-03-01 19:59] LABS: Appearance,Urine Slightly Cloudy (Clear)
[2025-03-01 20:14] LABS: Bacteria,Urine Trace /lpf; Mucus,Urine 3+ /lpf
--- NOTE | 2025-03-01 20:48 | PC.NURSE ---
[facility] called for transfer @ 2040
[2025-03-01 21:18] VITALS: BP 116/80; PULSE 68; RESP 18; TEMP 37.2; O2SAT 100
== END 2025-03-01 21:23 | disposition left against medical advice (07) ==
LOC: ER 21:18 → OB 21:47
PROVIDERS: Physician Assistant; Emergency Provider Emergency Medicine
DX: O26.891 Other specified pregnancy related conditions, first trimester (principal); R10.31 Right lower quadrant pain; R11.2 Nausea with vomiting, unspecified; R19.7 Diarrhea, unspecified; D72.829 Elevated white blood cell count, unspecified; Z3A.13 13 weeks gestation of pregnancy
CPT/HCPCS: 80053; 81001; 84145; 85007; 85025; 85027; 96361; 96374; 96375; 99285; 99291; J0131; J2765; J7030

== ENCOUNTER 2025-03-02 08:30 | Emergency (ER) | payer BC, SELFPAY ==
[2025-03-02 08:43] VITALS: BP 142/88; PULSE 82; RESP 18; TEMP 36.7; O2SAT 99; BMI 20.4
--- NOTE | 2025-03-02 08:43 | MR_ITS ---
FINAL REPORT CLINICAL HISTORY: patient is 13 weeks , N/V/D with suprapubic pain. cant keep food down. r/o appy FINDINGS: MRI ABDOMEN WITHOUT CONTRAST Multiplanar MR imaging of the abdomen was performed without IV contrast. The exam is degraded by a respiratory motion. Tiny cysts are seen in the right lobe of the liver measuring up to 5 mm. The liver is otherwise unremarkable. The spleen, adrenal glands, pancreas, and kidneys are without acute abnormality. IMPRESSION: Limited exam due to respiratory motion with no acute intra-abdominal abnormality. Reviewed, Interpreted and Dictated by Duncan Roque MD Transcribed by Leigh Garner Authenticated and . [facility]
[2025-03-02 09:00] VITALS: BP 109/49; PULSE 67; O2SAT 99
--- NOTE | 2025-03-02 09:18 | HMH.EDGENADL ---
Discharge Plan Disposition Patient Disposition: Home, Self-Care Prescriptions Prescriptions: New metoclopramide HCl [Reglan] 10 mg tablet 10 mg PO Q6H PRN (Reason: nausea and vomiting) Qty: 14 0RF No Action diphenhydramine HCl [Unisom SleepGels] 50 mg capsule 50 mg PO HS 10 Days Qty: 10 0RF pyridoxine (vitamin B6) [Vitamin B-6] 25 mg tablet 25 mg PO BID Qty: 60 0RF Referrals Follow up/Referrals: Provider,Referral, MD [Primary Care Provider] - See instructions Activity Restrictions/Add. Instructions Additional Instructions/Restrictions: Call your family doctor to establish care for this visit to the emergency department and schedule follow-up within 48 hours to ensure improvement. If you have any worsening of your condition or any other concerning signs or symptoms, return to the emergency department or your primary care doctor for further evaluation. Follow-up with OB as well. Clinical Impressions Clinical Impression: Abdominal pain, Vomiting and diarrhea Instructions Patient Instructions: DI for Acute Abdominal Pain Print Language Print Language: Armenian Discharge ED Provider: Caden Carbone General Adult HPI General Chief complaint: Abdominal Pain Stated complaint: nausea abd pain Time Seen by Provider: 03/02/25 08:36 Mode of Arrival: Ambulatory Source of Information: Patient Description of Symptoms (Recalled from ER Triage Doc. by RN): Patient reports the ER again today with reports of worsening nausea, vomiting, diarrhea and lower abdomen pain. States that this has been going on for 3 days and just hasn't gotten any better. Reports that she is 13 weeks . History of Present Illness HPI narrative: Please note that above description of symptoms, in this electronic medical record under categorization of recalled from ER triage doctor by RN are reflective of an initial nursing assessment, however, is not reflective of my full history and physical exam that was personally taken and clarified. Consequentially, this preceding description of symptoms, which may include the patient's categorized chief complaint in the EMR, do not reflect my personal clinical impression, and the ultimate description of history of present illness and patient stated complaints should be deferred to this section of the note. Unless stated otherwise or congruent with this section of the note, additional signs, symptoms, or incongruence should be interpreted as inaccurate with my clinical impression. Related Data Previous Rx's ?Medication ?Instructions ?Recorded diphenhydramine HCl 50 mg capsule 50 mg PO HS 10 days #10 caps 03/08/25 (Unisom SleepGels) pyridoxine (vitamin B6) 25 mg 25 mg PO BID #60 tabs 01/20/25 tablet (Vitamin B-6) metoclopramide HCl 10 mg tablet 10 mg PO Q6H PRN nausea and 03/02/25 (Reglan) vomiting #14 tabs Allergies Allergy/AdvReac Type Severity Reaction Status Date / Time No Known Allergies Allergy Verified 04/28/20 13:31 [facility] Disclaimer: The information contained in this section may have been updated after the patient was seen, as this information can be updated by other users. Social History Smoking Status: Current every day smoker alcohol intake: never current occupational status: other Travel in the last 8 weeks: None Have you lived/traveled outside US in past 30 days?: No Contact w/someone who lives/traveled outside US past 30 days?: No Exposure to someone with infectious disease in past 14 days?: No Do you have a fever (greater than 100.4 F or 38 C)?: No Have you tested positive for COVID-19: No Exposed to someone with COVID-19 in past 14 days?: No Do you have a sore throat?: No Do you have a cough?: No Do you have any weakness?: No Do you have any diarrhea?: No Are you experiencing any unusual bleeding?: No Do you have any muscle aches/pain?: No Do you have any abdominal pain?: Yes Are you experiencing loss of taste or smell?: No ROS Obtained: Yes All systems reviewed & no additional complaints except as documented Physical Exam General General appearance: alert Head Head exam: atraumatic and normocephalic Eye Eye exam: Present normal appearance, PERRL and EOMI Neck Neck exam: Present normal inspection, full ROM and trachea midline Respiratory Respiratory exam: Absent respiratory distress, wheezes, stridor, accessory muscle use or prolonged expiratory phase Cardiovascular Cardiovascular exam: Present other (Pulses equal symmetric in upper and lower extremities) Abdominal Exam Abdominal exam: Present soft and tenderness; Absent distention, guarding, rebound, rigidity or pulsatile mass Abdominal tenderness: Present RLQ, suprapubic and mild Extremities Exam Extremities exam: Absent edema Neurological Exam Neurological exam: Present alert, oriented X3 and CN II-XII intact; Absent motor sensory deficit Skin Skin exam: Present warm and dry; Absent diaphoresis or erythema Medical Decision Making Medical Records Medical records reviewed: Yes I reviewed the patient's medical records. Screening: Per USPSTF and CDC recommendations, given the prevalence of disease in our region, it is our hospital?s policy to screen for HIV and viral Hepatitis for all patients aged 18 and over and those with ongoing risk factors. Samuel Inquiry Pt receiving controlled substance: No Samuel was queried for this patient: No Vital Signs: 03/02/25 08:43 03/02/25 09:00 Temperature 98.0 F Temperature Source Oral Pulse Rate 67 Pulse Rate [Radial] 82 Respiratory Rate 18 Blood Pressure 109/49 L Blood Pressure [Right Arm] 142/88 H Blood Pressure Mean [Right Arm] 106 Blood Pressure Source [Right Arm] Automatic Cuff Blood Pressure Position [Right Arm] Sitting 02 Sat by Pulse Oximetry 99 99 Oxygen Delivery Method Room Air Lab Data Lab Results 03/02/25 09:05: WBC 19.1 H, RBC 4.07 L, Hgb 12.8, Hct 37.1, MCV 91.2, MCH 31.4 H, MCHC 34.5, RDW 12.7, Plt Count 368, MPV 9.3, Neut % (Auto) 85.5 H, Lymph % (Auto) 8.8 L, [place] % (Auto) 4.8, Eos % (Auto) 0.2, Baso % (Auto) 0.2, Neut # (Auto) 16.3 H, Lymph # (Auto) 1.7, [place] # (Auto) 0.9, Eos # (Auto) 0.0, Baso # (Auto) 0.0, Sodium 135 L, Potassium 3.4 L, Chloride 102, Carbon Dioxide 24, Anion Gap 12.4, BUN 10, Creatinine 0.50 L, Estimated Creat Clear 135, Estimated GFR 153, Est GFR ( Amer) 185, Glucose 107 H D, Lactate 0.7, Calcium 8.9, Total Bilirubin 0.6, AST 25 D, ALT 15, Alkaline Phosphatase 56, Total Protein 7.0, Albumin 3.9 D, Globulin 3.1, Albumin/Globulin Ratio 1.3 03/02/25 09:05 03/02/25 09:05 Orders (Tests/Meds): ED MEDICATIONS Discontinued Medications Generic Name Dose Route Start Last Admin Trade Name Romel PRN Reason Stop Dose Admin Acetaminophen 1,000 mg 03/02/25 08:43 03/02/25 09:26 Acetaminophen 1,000mg/100ml Vial IV 03/02/25 08:44 1,000 mg ONCE ONE Administration Doxycycline Hyclate 100 mg 03/02/25 10:14 03/02/25 11:12 Doxycycline Hycl 100 Mg Tablet PO 03/02/25 10:15 100 mg ONCE ONE Administration Lactated Ringer's 1,000 mls @ 999 mls/hr 03/02/25 08:43 03/02/25 09:26 Lactated Ringer's 1000 Ml Bag IV 03/02/25 09:43 999 mls/hr .Q1H1M ONE Administration Ceftriaxone Sodium 2 gm/ 100 mls @ 200 mls/hr 03/02/25 10:14 03/02/25 11:10 Sodium Chloride IV 03/02/25 10:43 200 mls/hr ONCE ONE Administration Metoclopramide HCl 10 mg 03/02/25 08:43 03/02/25 09:27 Metoclopramide Hcl 10mg/2ml Vial IVP 03/02/25 08:44 10 mg ONCE ONE Administration Metronidazole 500 mg 03/02/25 10:14 03/02/25 11:12 Metronidazole 500 Mg Tablet PO 03/02/25 10:15 500 mg ONCE ONE Administration ORDERS Category Date Time Status CBC w/Auto Diff [Complete Blood Count Auto Diff] Stat Lab 03/02/25 09:05 Completed CMP [Comprehensive Metabolic Panel] Stat Lab 03/02/25 09:05 Completed Lactic Acid Stat Lab 03/02/25 09:05 Completed UA [Urinalysis and Microscopic] Stat Lab 03/02/25 08:43 Ordered Blood Culture Stat Micro 03/02/25 09:20 Received Medical Decision Narrative: 24-year-old female presenting with abdominal pain. She is approximately 13 weeks . She states that she started having suprapubic and right lower quadrant abdominal pain 3 days prior to this. Associated with vomiting and diarrhea, no fevers. Of urinary symptoms. Came to the emergency department yesterday, 03/01, was worked up, concern for potential appendicitis was given empiric coverage and recommended admission for MRI to rule out appendicitis. Patient left AMA. Presents today with the same symptoms. States that she has had a small amount of blood in her vomit, but no blood in her stool. Abdominal pain is currently mild to moderate and does not radiate. History was obtained via conversation with patient, chart review, . On arrival, patient hemodynamically stable, alert, oriented x4, appropriate, GCS 15, moving all extremities spontaneously, pupils equal and reactive to light. Full physical exam performed and significant for 24-year-old female who is in no acute distress. Speaking in full sentences, not actively retching. Abdomen is soft, mildly tender in suprapubic and right lower quadrant areas, no evidence of peritonitis. No overlying skin changes. Flank tenderness. Differential includes gastritis, gastroenteritis, colitis, Appendicitis, PID, TOA, heterotopic , endometritis, , among others. Patient placed on continuous cardiac monitoring and continuous pulse ox with initial blood pressure 142/88, heart rate 82, saturation 99% on room air.Patient was given Reglan and fluids for symptomatic management and correction of underlying abnormalities. Workup independently interpreted and significant for nonactionable CBC with downtrending leukocytosis just from yesterday. Patient's lactate negative.. On independent interpretation of imaging, no acute intra-abdominal abnormality, including appendicitis. See radiology read for full review of final results. Reevaluation, patient resting comfortably. Given patient presentation, workup, history, this most likely represents gastroenteritis versus IBS. Because patient at baseline without signs or symptoms of clinical decompensation, deemed appropriate for discharge. Results were relayed to patient who voiced understanding and were agreeable to outpatient management and follow up. I discussed my clinical impression with patient and answered all questions. At this time, the evidence for any other entities in the differential is insufficient to warrant any further testing or ED observation. This was explained as well. Advisory was given that persistent or worsening symptoms require further evaluation. I confirmed the understanding of this discussion. Assistant Infant Toddler Teacher disclaimer Much of this encounter note is an electronic guest room attendant spoken language to printed text. Electronic guest room attendant of the spoken language may permit errors. Although I have reviewed the note, some errors may still exist. Critical Care Critical Care Time Critical Care Time: No
[2025-03-02 09:25] LABS: Basophils % 0.2 % (0.1-2.0); Eosinophils % 0.2 % (0.1-12.0); Hematocrit 37.1 % (37.0-47.0); Hemoglobin 12.8 g/dL (12.2-16.2); Lymphocytes # 1.7 K/mm3 (0.7-4.5); Lymphocytes % 8.8 % (10-50); Mean Corpuscular HGB Conc 34.5 g/dL (31.8-35.4); Mean Corpuscular Hemoglobin 31.4 pg (27.0-31.2); Mean Corpuscular Volume 91.2 fl (81-99); Mean Platelet Volume 9.3 fl (7.4-10.4); Monocytes # 0.9 K/mm3 (0.1-1.0); Monocytes % 4.8 % (1.7-9.3); Neutrophils # 16.3 K/mm3 (1.8-7.8); Neutrophils % 85.5 % (37.0-80.0); Nucleated Red Blood Cells # 0 10^3/uL; Nucleated Red Blood Cells % 0 %; Platelet Count 368 K/mm3 (142-424); Red Blood Count 4.07 M/mm3 (4.20-5.40); Red Cell Distribution Width 12.7 % (11.5-17.5); Red Cell Distribution Width-SD 42.2 fL; White Blood Count 19.1 K/mm3 (4.8-10.8)
[2025-03-02] MEDS: LACTATED RINGERS 1000ML 1,000 ML 999 ML IV (09:26)
[2025-03-02] MEDS: ACETAMINOPHEN 1,000MG/100ML VIAL 1000 MG IV (09:26)
[2025-03-02] MEDS: METOCLOPRAMIDE HCL 10MG/2ML VIAL 10 MG IVP (09:27)
[2025-03-02 09:29] LABS: Chloride 102 mmol/L (98-107)
[2025-03-02 09:30] LABS: Albumin Level 3.9 g/dl (3.5-5.0); Potassium 3.4 mmoL/L (3.5-5.1); Sodium 135 mmol/L (136-145)
[2025-03-02 09:33] LABS: Alanine Aminotransferase 15 U/L (12-78); Albumin/Globulin Ratio 1.3 (1.1-1.8); Alkaline Phosphatase 56 U/L (38-126); Anion Gap 12.4 mEq/L (5-15); Aspartate Amino Transferase 25 U/L (14-36); Bilirubin,Total 0.6 mg/dl (0.2-1.3); Blood Urea Nitrogen 10 mg/dl (7-17); Calcium 8.9 mg/dl (8.4-10.2); Carbon Dioxide 24 mmol/L (22.0-30.0); Creatinine Clearance Estimated 135 mL/min (50-200); Estimated Glomerular Filt Rate 153 ml/min (>60); GFR (African American) 185 ML/MIN (>60); Globulin 3.1 g/dL (1.3-3.2); Glucose 107 mg/dl (74-100)
[2025-03-02 09:34] LABS: Lactic Acid 0.7 mmol/L (0.7-2.1)
--- NOTE | 2025-03-02 09:40 | PC.NURSE ---
Patient to MRI.
--- NOTE | 2025-03-02 10:00 | MR_ITS ---
FINAL REPORT CLINICAL HISTORY: patient is 13 weeks , N/V/D with suprapubic pain. cant keep food down. FINDINGS: MRI PELVIS WITHOUT CONTRAST Multiplanar MR imaging of the pelvis was performed without IV contrast. There is a single intrauterine . The fetus is in breech position. The fetus measures 6.7 cm in length. The uterus is anteverted. The placenta is anterior. The ovaries are visualized in the adnexal region bilaterally. No definite localized inflammatory reaction is seen. There is no significant free fluid. There is no definite evidence of acute appendicitis. IMPRESSION: No acute intra-abdominal abnormality. No evidence of acute appendicitis Single, intrauterine . Reviewed, Interpreted and Dictated by Duncan Roque MD Transcribed by Leigh Garner Authenticated and [facility]
[2025-03-02] MEDS: CEFTRIAXONE SODIUM 2 GM in 0.9 % SODIUM CHLORIDE 100 ML IV (11:10)
[2025-03-02] MEDS: DOXYCYCLINE HYCL 100 MG TABLET PO (11:12)
[2025-03-02] MEDS: metroNIDAZOLE 500 MG TABLET PO (11:12)
--- NOTE | 2025-03-02 12:22 | PC.NURSE ---
Called radiology to check on status of mr reads. There are prelim reads and these were given to Dr Carbone.
[2025-03-02] MEDS: METOCLOPRAMIDE 10MG TABLET 10 MG PO (13:25)
[2025-03-02 13:32] VITALS: BP 109/49; PULSE 67; RESP 18; TEMP 36.7; O2SAT 99
== END 2025-03-02 13:32 | disposition home or self-care (01) ==
PROVIDERS: Emergency Provider Emergency Medicine
DX: O26.891 Other specified pregnancy related conditions, first trimester (principal); R10.30 Lower abdominal pain, unspecified; R11.2 Nausea with vomiting, unspecified; R19.7 Diarrhea, unspecified; Z3A.13 13 weeks gestation of pregnancy
CPT/HCPCS: 72195; 74181; 80053; 83605; 85025; 87040; 96361; 96365; 96375; 99285; J0131; J0696; J2765; J7120

== ENCOUNTER 2025-03-03 07:17 | Emergency (ER) | payer BC, SELFPAY ==
[2025-03-03 07:26] VITALS: BP 145/81; PULSE 70; RESP 16; TEMP 36.7; O2SAT 97; BMI 20.4
[2025-03-03 07:30] LABS: Microscopic, Urine URINE MICROSCOPIC (MICROSCOPIC)
[2025-03-03 07:32] LABS: Appearance,Urine CLOUDY (Clear); Blood, Urine Negative (Negative); Color,Urine YELLOW (Yellow); Glucose,Urine (UA) Negative (Negative); Ketones,Urine 3+ (Negative); Leukocyte Esterase,Urine TRACE (Negative); Nitrate,Urine Negative (Negative); Protein,Urine Negative (Negative); Specific Gravity, Urine >= 1.030 (1.005-1.030); Urobilinogen,Urine 0.2 EU/dl (0.2)
--- NOTE | 2025-03-03 07:35 | ED_ITS ---
Discharge Plan Disposition Patient Disposition: Eloped Chief Complaint: Nausea/Vomiting/Diarrhea Prescriptions Prescriptions: New nitrofurantoin monohyd/m-cryst [Macrobid] 100 mg capsule 100 mg PO BID 5 Days Qty: 10 0RF Rx Instructions: must administer with a meal/food No Action metoclopramide HCl [Reglan] 10 mg tablet 10 mg PO Q6H PRN (Reason: nausea and vomiting) Qty: 14 0RF diphenhydramine HCl [[employer]om SleepGels] 50 mg capsule 50 mg PO HS 10 Days Qty: 10 0RF pyridoxine (vitamin B6) [Vitamin B-6] 25 mg tablet 25 mg PO BID Qty: 60 0RF Referrals Follow up/Referrals: Provider,Referral, MD [Primary Care Provider] - See instructions Clinical Impressions Clinical Impression: Nausea, Abdominal pain, Vomiting Instructions Patient Instructions: DI for Diarrhea and Traveler's Diarrhea -- Adult, DI for Diarrhea and Traveler's Diarrhea -- Child, DI for Nausea -- Adult, DI for Nausea -- Child Print Language Print Language: Mozambican Discharge ED Provider: Arsenio Craft Adult HPI General Chief complaint: Nausea/Vomiting/Diarrhea Stated complaint: severe abd pain, vomiting Time Seen by Provider: 03/03/25 07:26 Mode of Arrival: Ambulatory Source of Information: Patient Description of Symptoms (Recalled from ER Triage Doc. by RN): pt vomiting,lower abdominal pain. smoking marijuana daily. denies other drug use. History of Present Illness HPI narrative: Jessica Hines is a 24y female, currently 13 weeks with her third , status post cholecystectomy who presents to the emergency department for complaints of nausea, vomiting and abdominal pain. Patient is been seen in the emergency department for same complaints over the past 2 days and had appendicitis ruled out yesterday via abdominal MRI. Patient states that the past 2 times she has been here, she has received medication via her IV and that has helped her nausea and vomiting. When she left yesterday, she had return of her nausea and vomiting when she got home. She did not steel pickler her prescription medications after leaving. She states that she did not leave in time to attend her OB appointment either. She reports abdominal pain in the lower part of her abdomen. She states that her vomit is nonbloody and is yellow and liquidy. She is vomiting approximately every hour. She denies any diarrhea and states that her last bowel movement was yesterday. She denies any dysuria or hematuria. Patient denies any alcohol use or tobacco use but does state that she smokes marijuana every day and last smoked last night, stating that it calms down her stomach Related Data Previous Rx's ?Medication ?Instructions ?Recorded diphenhydramine HCl 50 mg capsule 50 mg PO HS 10 days #10 caps 01/20/25 (Unisom SleepGels) pyridoxine (vitamin B6) 25 mg 25 mg PO BID #60 tabs 01/20/25 tablet (Vitamin B-6) metoclopramide HCl 10 mg tablet 10 mg PO Q6H PRN nausea and 03/02/25 (Reglan) vomiting #14 tabs nitrofurantoin 100 mg PO BID 5 days #10 caps 03/03/25 monohydrate/macrocrystals 100 mg capsule (Macrobid) Allergies Allergy/AdvReac Type Severity Reaction Status Date / Time No Known Allergies Allergy Verified 04/28/20 13:31 [facility] Disclaimer: The information contained in this section may have been updated after the patient was seen, as this information can be updated by other users. Social History Smoking Status: Current every day smoker alcohol intake: never current occupational status: other Travel in the last 8 weeks: None Have you lived/traveled outside [place] in past 30 days?: No Contact w/someone who lives/traveled outside [place] past 30 days?: No Exposure to someone with infectious disease in past 14 days?: No Do you have a fever (greater than 100.4 F or 38 C)?: No Have you tested positive for COVID-19: No Exposed to someone with COVID-19 in past 14 days?: No Do you have a sore throat?: No Do you have a cough?: No Do you have any weakness?: No Do you have any diarrhea?: No Are you experiencing any unusual bleeding?: No Do you have any muscle aches/pain?: No Do you have any abdominal pain?: No Are you experiencing loss of taste or smell?: No ROS Obtained: Yes Systems reviewed as appropriate & no additional complaints except as documented Physical Exam General General appearance: alert and in no apparent distress Head Head exam: atraumatic Eye Eye exam: Present normal appearance ENT ENT exam: Present normal external ear exam Neck Neck exam: Present full ROM Chest Chest inspection: Present symmetric chest wall rise Respiratory Respiratory exam: Present normal lung sounds bilaterally; Absent respiratory distress Cardiovascular Cardiovascular exam: Present regular rate and normal rhythm Abdominal Exam Abdominal exam: Present soft and tenderness (suprapubic without guarding or rebound); Absent guarding Extremities Exam Extremities exam: Present normal inspection Back Exam Back exam: Present normal inspection Neurological Exam Neurological exam: Present alert and oriented X3 Psychiatric Psychiatric exam: Present normal affect Skin Skin exam: Present warm and dry Medical Decision Making Medical Records Screening: Per USPSTF and CDC recommendations, given the prevalence of disease in our region, it is our hospital?s policy to screen for HIV and viral Hepatitis for all patients aged 18 and over and those with ongoing risk factors. Samuel Inquiry Pt receiving controlled substance: No Vital Signs: 03/03/25 07:26 03/03/25 08:20 Temperature 98.1 F 98.1 F Temperature Source Oral Oral Pulse Rate 70 Pulse Rate [Right] 70 Respiratory Rate 16 16 Blood Pressure 0/0 L Blood Pressure [Right Arm] 145/81 H Blood Pressure Mean [Right Arm] 102 02 Sat by Pulse Oximetry 97 Oxygen Delivery Method Room Air Room Air Lab Data Lab Results 03/03/25 07:25: Urine Color Yellow, Urine Appearance Cloudy, Urine pH 6.0, Ur Specific [place] >= 1.030, Urine Protein Negative, Urine Glucose (UA) Negative, Urine Ketones 3+, Urine Blood Negative, Urine Nitrate Negative, Urine Bilirubin 1+ A, Urine Urobilinogen 0.2, Ur Leukocyte Esterase Trace, Urine RBC None, Urine WBC 10-20, Ur Squamous Epith Cells 10-20, Urine Bacteria 2+ 03/03/25 07:45: WBC 14.6 H, RBC 4.02 L, Hgb 12.6, Hct 36.7 L, MCV 91.3, MCH 31.3 H, MCHC 34.3, RDW 12.6, Plt Count 337, MPV 9.1, Neut % (Auto) 83.6 H, Lymph % (Auto) 10.9, [place] % (Auto) 4.3, Eos % (Auto) 0.5, Baso % (Auto) 0.3, Neut # (Auto) 12.2 H, Lymph # (Auto) 1.6, [place] # (Auto) 0.6, Eos # (Auto) 0.1, Baso # (Auto) 0.0, Sodium 133 L, Potassium 3.1 L, Chloride 103, Carbon Dioxide 24, Anion Gap 9.1, BUN 11, Creatinine 0.60, Estimated Creat Clear 113, Estimated GFR 124, Est GFR ( Amer) 150, Glucose 113 H, Lactate 0.8, Calcium 8.8, Total Bilirubin 0.6, AST 26, ALT 16, Alkaline Phosphatase 58, Total Protein 7.1, Albumin 4.0, Globulin 3.1, Albumin/Globulin Ratio 1.3, Lipase 55 03/03/25 07:45 03/03/25 07:45 Orders (Tests/Meds): ED MEDICATIONS Discontinued Medications Generic Name Dose Route Start Last Admin Trade Name Freq PRN Reason Stop Dose Admin Acetaminophen 1,000 mg 03/03/25 08:08 03/03/25 08:16 Acetaminophen 500mg Tab PO 03/03/25 08:09 Not Given ONCE ONE Sodium Chloride 1,000 mls @ 999 mls/hr 03/03/25 07:33 03/03/25 07:45 Sod Chlor 0.9% 1000ml Bag IV 03/03/25 08:33 999 mls/hr .Q1H1M ONE Administration Metoclopramide HCl 10 mg 03/03/25 07:33 03/03/25 07:45 Metoclopramide Hcl 10mg/2ml Vial IVP 03/03/25 07:34 10 mg ONCE ONE Administration ORDERS Category Date Time 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 Consult 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 [CONS] Routine Cons 03/03/25 08:24 Active CBC w/Auto Diff [Complete Blood Count Auto Diff] Stat Lab 03/03/25 07:45 Completed CMP [Comprehensive Metabolic Panel] Stat Lab 03/03/25 07:45 Completed Lactic Acid Stat Lab 03/03/25 07:45 Completed Lipase Stat Lab 03/03/25 07:45 Completed UA [Urinalysis and Microscopic] Stat Lab 03/03/25 07:25 Completed Urine Culture Stat Micro 03/03/25 07:25 Received Medical Decision Narrative: Jessica Hines is a 24-year-old female, third , history of cholecystectomy, daily marijuana use who presents to the emergency department for complaints of nausea, vomiting and abdominal pain. She is present to the emergency department for the third day in a row for the same complaints. Previous records were reviewed. Patient had an abdominal/pelvic MRI yesterday for concern for appendicitis that showed no intra abdominal abnormality. On her visit on 03/01, patient had a quantitative hCG of 773. [id number] ultrasound also demonstrated an intrauterine . Her white blood cell count was elevated at 22,000 but is downtrending to 19 as of yesterday. No elevation in her liver enzymes and no significant electrolyte derangements. Trace bacteria was present on urinalysis. Patient was discharged with prescriptions for Benadryl, pyridoxine, Reglan the patient states that she did not go to the pharmacy to steel pickler her prescriptions yesterday. She has continued to vomit throughout the night that is nonbloody. She denies any urinary symptoms but reports suprapubic abdominal pain. On arrival, patient blood pressure is mildly elevated at 145/81, heart rate within normal limits, breathing comfortably on room air, afebrile, maintaining appropriate oxygen saturations. Physical exam, stated above, reveals an overall well-appearing female in no acute distress. She is alert and oriented and answering questions appropriately. She has some mild suprapubic tenderness but abdomen is nondistended without guarding or rebound. She appears well-hydrated with moist mucous membranes and less than 2-second capillary refill. Patient was instructed to avoid marijuana use in the future as this is likely contributing significantly to her symptoms today. Differential diagnosis includes, but is not limited to: Hyperemesis gravidarum, viral gastritis, cannabis hyperemesis syndrome, electrolyte derangement, dehydration, UTI, acute pancreatitis, among others. Workup in the emergency department included: CBC, CMP, lipase, lactic acid, urinalysis. Patient symptomatically treated with 1 L normal saline as well as 10 mg IV Reglan. No imaging is indicated at this time as she has a confirmed intrauterine and negative MRI of the abdomen/pelvis as of yesterday. Workup in the emerged part was significant for urine with 2+ bacteria, 1+ bilrubin, negative leukocyte esterase, 10-20 WBC, 10-20 squamous cells, negative nitrite, negative blood and 3+ ketones Prior to completion of her workup, patient left the emergency department. I was not able to have a discussion with her about the risks of leaving the emergency department without completion of her workup, which includes significant dehydration requiring continued IV fluids, significant electrolyte derangement requiring correction. A prescription for Macrobid was sent to the pharmacy for asymptomatic bacteriuria of but ultimately patient eloped from the emergency department prior to completion of her workup or discussion about plan moving forward. Critical Care Critical Care Time Critical Care Time: No
[2025-03-03 07:40] LABS: Bilirubin,Urine 1+ (Negative)
[2025-03-03 07:41] LABS: Bacteria,Urine 2+ /lpf
[2025-03-03] MEDS: METOCLOPRAMIDE HCL 10MG/2ML VIAL 10 MG IVP (07:45)
[2025-03-03] MEDS: 0.9 % SODIUM CHLORIDE 1000ML 1,000 ML 999 ML IV (07:45)
[2025-03-03 07:53] LABS: Basophils % 0.3 % (0.1-2.0); Eosinophils # 0.1 Kmm3 (0.0-0.4); Eosinophils % 0.5 % (0.1-12.0); Hematocrit 36.7 % (37.0-47.0); Hemoglobin 12.6 g/dL (12.2-16.2); Lymphocytes # 1.6 K/mm3 (0.7-4.5); Lymphocytes % 10.9 % (10-50); Mean Corpuscular HGB Conc 34.3 g/dL (31.8-35.4); Mean Corpuscular Hemoglobin 31.3 pg (27.0-31.2); Mean Corpuscular Volume 91.3 fl (81-99); Mean Platelet Volume 9.1 fl (7.4-10.4); Monocytes # 0.6 K/mm3 (0.1-1.0); Monocytes % 4.3 % (1.7-9.3); Neutrophils # 12.2 K/mm3 (1.8-7.8); Neutrophils % 83.6 % (37.0-80.0); Nucleated Red Blood Cells # 0 10^3/uL; Nucleated Red Blood Cells % 0 %; Platelet Count 337 K/mm3 (142-424); Red Blood Count 4.02 M/mm3 (4.20-5.40); Red Cell Distribution Width 12.6 % (11.5-17.5); White Blood Count 14.6 K/mm3 (4.8-10.8)
[2025-03-03 07:59] LABS: Chloride 103 mmol/L (98-107); Potassium 3.1 mmoL/L (3.5-5.1); Sodium 133 mmol/L (136-145)
[2025-03-03 08:01] LABS: Blood Urea Nitrogen 11 mg/dl (7-17); Creatinine Clearance Estimated 113 mL/min (50-200); Estimated Glomerular Filt Rate 124 ml/min (>60); GFR (African American) 150 ML/MIN (>60); Lactic Acid 0.8 mmol/L (0.7-2.1)
[2025-03-03 08:02] LABS: Alanine Aminotransferase 16 U/L (12-78); Albumin/Globulin Ratio 1.3 (1.1-1.8); Alkaline Phosphatase 58 U/L (38-126); Anion Gap 9.1 mEq/L (5-15); Aspartate Amino Transferase 26 U/L (14-36); Bilirubin,Total 0.6 mg/dl (0.2-1.3); Calcium 8.8 mg/dl (8.4-10.2); Carbon Dioxide 24 mmol/L (22.0-30.0); Globulin 3.1 g/dL (1.3-3.2); Glucose 113 mg/dl (74-100); Lipase 55 U/L (23-300); Total Protein,Serum 7.1 g/dl (6.3-8.2)
[2025-03-03 08:20] VITALS: BP 0/0; PULSE 70; RESP 16; TEMP 36.7; O2SAT 97
--- NOTE | 2025-03-03 08:22 | PC.NURSE ---
i attempted to educate pt regarding medications and drug use. I offered her local resources for women. Pt left AMA. referral placed for peer counseling
--- NOTE | 2025-03-09 16:47 | PEERSUPPORT ---
Peer Support Note Patient Information Patient Information: DOS: 03/05/2025 Reason: ETOH Ps consult Pt stated she has not drank any alcohol since she was discharged. She has a social support her father who is also in recovery who she is able to be open and honest with. She is working and not interested in outpatient options at this time. Pt is receptive to ps and accepting of following up phone calls stated any support would be helpful. Ps will continue to follow up offering recovery focused support and resources to recovery community.
== END 2025-03-03 08:21 | disposition left against medical advice (07) ==
LOC: ER 07:42
PROVIDERS: Emergency Provider Student in an Organized Health Care Education/Training Program
DX: O26.891 Other specified pregnancy related conditions, first trimester (principal); R10.30 Lower abdominal pain, unspecified; E87.6 Hypokalemia; E87.1 Hypo-osmolality and hyponatremia; O99.321 Drug use complicating pregnancy, first trimester; F12.90 Cannabis use, unspecified, uncomplicated; Z3A.13 13 weeks gestation of pregnancy
CPT/HCPCS: 80053; 81001; 83605; 83690; 85025; 87086; 96361; 96374; 99284; J2765; J7030